=== PATIENT | male | born 1980 | race Caucasian/White ===

== ENCOUNTER 2018-09-27 00:40 | Emergency (ER) | payer OTHER, SELFPAY ==
[2018-09-27] VITALS (7 sets, daily range): BP systolic 105–122; BP diastolic 59–74; PULSE 65–92; RESP 16–18; TEMP 35.9–36.4; O2SAT 95–98; BMI 26.8
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
[2018-09-27 00:54] LABS: Add Manual Diff / Slide Review NO; Eosinophils Percent Auto 2.7 % (2-4); Hematocrit 45.2 % (41-53); Hemoglobin 15.4 g/dL (13.5-17.5); Lymphocytes Percent Auto 55.5 % (25-40); Mean Corpuscular Hemoglobin 31.9 PG (26-34); Mean Corpuscular Volume 93.7 fL (80-100); Monocytes Percent Auto 10.1 % (3-14); Neutrophils Absolute Auto 2400 /uL (1500-7000); Neutrophils Percent Auto 30.7 % (50-75); Platelet Count 341 X10^3/uL (150-400); Red Blood Cell Count 4.82 X10^6/uL (4.5-5.9); Red Cell Distribution Width 13.8 % (11.6-14.8); White Blood Cell Count 7.9 X10^3/uL (4.5-11.0)
[2018-09-27 01:09] LABS: Alanine Aminotransferase 24 IU/L (21-72); Albumin 4.7 g/dL (3.5-5.0); Albumin Globulin Ratio 1.4 (1.0-2.8); Alkaline Phosphatase 44 U/L (38-126); Aspartate Aminotransferase 33 IU/L (17-59); Bilirubin Total 0.7 mg/dL (0.2-1.3); Blood Urea Nitrogen 13 mg/dL (9-20); Calcium 9.1 mg/dL (8.4-10.2); Carbon Dioxide 22 mmol/L (22-32); Chloride 108 mmol/L (98-107); Estimated Glomerular Filt Rate > 60.0 mL/min (>60); Ethanol (ETOH) 256 mg/dL; Globulin 3.3 g/dL (1.7-4.1); Glucose 94 mg/dL (70-100); HEMOLYSIS 30 (0-50); Lipase 109 U/L (23-300); Potassium 4.3 mmol/L (3.4-5.1); Sodium 145 mmol/L (137-145)
[2018-09-27] MEDS: ONDANSETRON 4 MG/2 ML INJ IV (01:16)
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
[2018-09-27] MEDS: TET,DIPH,PERTUSS(ACELL),VAC/PF 0.5 ML SYRINGE IM (01:23)
--- NOTE | 2018-09-27 01:41 | PC.NURSE ---
All wounds cleaned and flushed with saline
[2018-09-27] MEDS: CEFAZOLIN 1 GM VIAL IV (03:32)
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
== END 2018-09-27 04:45 | disposition home or self-care (01) ==
PROVIDERS: Emergency Provider Emergency Medicine
DX: S01.81XA Laceration without foreign body of other part of head, initial encounter (principal); S01.319A Laceration without foreign body of unspecified ear, initial encounter; S02.401A Maxillary fracture, unspecified side, initial encounter for closed fracture; V49.9XXA Car occupant (driver) (passenger) injured in unspecified traffic accident, initial encounter
CPT/HCPCS: 12013; 36415; 70450; 70486; 71045; 71260; 72125; 72170; 74177; 80053; 80320; 82962; 83690; 85025; 86850; 86900; 86901; 96372; 96374; 96375; 99284; 99285; 99291; 99292; 90715; J0690; J2405; Q9967